=== PATIENT | male | born 1995 | race Two or more races ===

== ENCOUNTER 2017-07-10 23:53 | Emergency (ER) | payer SELFPAY ==
[2017-07-10 23:58] VITALS: BMI 25.7
--- NOTE | 2017-07-11 00:11 | ED PDOC ---
HPI: Skin/Bite Injury Time Seen by Provider: 07/10/17 23:54 Chief Complaint (Provider): ETOH History Per: Patient Additional Complaint(s): 21 yo male, unknown medical history, brought in my EMS and PD for suspected ETOH intoxication and possible substance abuse. Pt kicking and spitting upon arrival. Bit bouncer at bar. under arrest. Pt screaming and uncooperative. Past Medical History Reviewed: Unable To Obtain Vital Signs: Last Vital Signs Temp 98.4 F 07/11/17 00:12 Pulse 94 H 07/11/17 03:30 Resp 18 07/11/17 03:30 BP 145/72 07/11/17 03:30 Pulse Ox 98 07/11/17 03:30 - Family History Family History: States: Unknown Family Hx - Allergies Allergies/Adverse Reactions: Allergies Allergy/AdvReac Type Severity Reaction Status Date / Time No Known Allergies Allergy Verified 07/10/17 23:57 Review of Systems Review Of Systems: ROS cannot be obtained secondary to pt's inabilty to answer questions. Physical Exam - Reviewed Nursing Documentation Reviewed: Yes Vital Signs Reviewed: Yes - Physical Exam Appears: Positive for: Well, Non-toxic, No Acute Distress Head Exam: Positive for: ATRAUMATIC, NORMAL INSPECTION, NORMOCEPHALIC Skin: Positive for: Normal Color, Warm, DRY Eye Exam: Positive for: EOMI, Normal appearance, PERRL ENT: Positive for: Normal ENT Inspection Neck: Positive for: Normal, Painless ROM Cardiovascular/Chest: Positive for: Regular Rate, Rhythm Respiratory: Positive for: CNT, Normal Breath Sounds Gastrointestinal/Abdominal: Positive for: Normal Exam, Bowel Sounds, Soft Back: Positive for: Normal Inspection Extremity: Positive for: Normal ROM Neurologic/Psych: Positive for: Alert - Laboratory Results Result Diagrams: 07/11/17 01:05 07/11/17 01:05 Medical Decision Making Medical Decision Making: Pt placed on 1:1 restrained ordered Ativan administered and Pt on locomotive boilermaker. On re-eval, pt asleep in NAd. restraints removed. see nursing notes. Vitals remain stable on locomotive boilermaker. 0540 Pt asleep in ED room. arousable to tactile stimuli. Case endorsed to ED MD, Dr. Olivares, [id number] pending clinical sobriety and re-eval Disposition - Clinical Impression Clinical Impression: Alcohol ingestion - Patient ED Disposition Is Patient to be Admitted: Transfer of Care - Disposition Disposition: Transfer of Care Disposition Time: 05:46 Condition: STABLE - POA Present On Arrival: None
[2017-07-11 00:13] VITALS: TEMP 98.4
[2017-07-11 01:15] LABS: BASO # 0.1 K/uL (0.0-0.2); BASO % 0.8 % (0.0-2.0); EOS # 0.1 K/uL (0.0-0.7); EOS % 0.9 % (0.0-4.0); HEMOGLOBIN 15.9 g/dL (12.0-18.0); LYMPH # 2.5 K/uL (1.0-4.3); MEAN CORPUSCULAR HGB CONC 34.4 g/dL (33.0-37.0); MEAN PLATELET VOLUME 7.1 fl (7.2-11.7); MONO # 0.7 K/uL (0.0-0.8); MONO % 5.6 % (0.0-10.0); NEUT # 8.6 K/uL (1.8-7.0); NEUT % 71.7 % (50.0-75.0); NRBC % 0.1 % (0.0-0.0); RBC 4.83 Mil/uL (4.40-5.90); RED CELL DISTRIBUTION WIDTH 13.4 % (11.5-14.5)
[2017-07-11 01:25] LABS: ALB/GLOB RATIO 1.2 (1.0-2.1); ALBUMIN 4.3 g/dL (3.5-5.0); ALT/SGPT 79 U/L (21-72); AST/SGOT 46 U/L (17-59); BLOOD UREA NITROGEN 14 mg/dl (9-20); CALCIUM 8.7 mg/dL (8.4-10.2); GFR AFRICAN-AMERICAN > 60; GFR NON-AFRICAN AMERICAN > 60
[2017-07-11 04:29] VITALS: RESP 18; O2SAT 98
[2017-07-11 04:30] VITALS: BP 145/72; PULSE 94
--- NOTE | 2017-07-11 06:38 | ED PDOC ---
- Laboratory Results Result Diagrams: 07/11/17 01:05 07/11/17 01:05 - ECG O2 Sat by Pulse Oximetry: 98 Medical Decision Making Medical Decision Makin am signout from ANNIE Burns pending sobriety pt currently sober, almbualting with steady gait stable vitals stable for dc home Disposition Counseled Patient/Family Regarding: Studies Performed, Diagnosis, Need For Followup - Clinical Impression Clinical Impression: Alcohol ingestion - POA Present On Arrival: None - Disposition Disposition: Routine/Home Disposition Time: 06:38 Condition: IMPROVED
== END 2017-07-11 06:45 | disposition home or self-care (01) ==
LOC: H.ER 23:53
DX: F10.129 Alcohol abuse with intoxication, unspecified (principal)
CPT/HCPCS: 80053; 82948; 85025; 96372; 96374; 99284; G0480; J1630; J2060